=== PATIENT | male | born 1965 | race American Indian/Alaskan Native ===

== ENCOUNTER 2019-11-24 15:36 | Inpatient (IN) | payer OTHER ==
[~2019-11-24] VITALS: Ht 182.9 cm; Wt 91.0 kg
[2019-11-24] MEDS ORDERED: SODIUM CHLORIDE 0.9% 1,000 ML IVB ONE (16:13)
[2019-11-24] MEDS ORDERED: AZITHROMYCIN 500MG/ 250ML 250 ML IV ONE (16:15)
[2019-11-24] MEDS ORDERED: DOXYCYCLINE 100 MG TAB/CAP PO ONE (16:15)
[2019-11-24] MEDS ORDERED: ACETAMINOPHEN 325 MG TAB PO ONE ×2 (17:10→17:15)
[2019-11-24] MEDS ORDERED: ASCORBIC ACID 500 MG TAB PO ONE (17:45)
[2019-11-24] MEDS ORDERED: ZINC SULFATE 220mg CAP or TAB PO ONE (17:45)
[2019-11-24 18:06] LABS: Basophils # (auto) 0 10 ^3/uL (0-0.2); Basophils % (auto) 0.4 % (0.0-2.0); Eosinophils # (auto) 0 10 ^3/uL (0-0.8); Eosinophils % (auto) 0.2 % (0.0-7.0); Hematocrit 43.3 % (41.0-53.0); Hemoglobin 14.3 g/dL (13.5-17.5); Lymphocytes # (auto) 0.9 10 ^3/uL (0.4-5.4); Lymphocytes % (auto) 17.1 % (10.0-50.0); Mean Corpuscular Hemoglobin 30.2 pg (28.0-32.0); Mean Corpuscular Volume 91.4 fL (80.0-100.0); Monocytes # (auto) 0.8 10 ^3/uL (0-1.3); Monocytes % (auto) 15.5 % (0.0-12.0); Neutrophils # (auto) 3.4 10 ^3/uL (1.6-8.6); Neutrophils % (auto) 66.8 % (37.0-80.0); Platelet Count (auto) 135 10^3/uL (140-450); Red Blood Cells 4.74 10^6/uL (4.5-5.90); Red Cell Distribution Width 13.2 % (11.8-14.3)
[2019-11-24 18:23] LABS: INR 1.01 (0.9-1.15); Partial Thromboplastin Time 30.5 sec (23.64-32.05)
[2019-11-24 18:24] LABS: Albumin 2.6 g/dL (3.4-5.0); Calcium 7.6 mg/dL (8.5-10.1); Magnesium 2.3 mg/dL (1.6-2.6); Potassium 3.7 mmol/L (3.5-5.1)
[2019-11-24 18:30] LABS: BUN/Creatinine Ratio 25.3; Bilirubin, Total 0.6 mg/dL (0.2-1.0); Total Protein 6.9 g/dL (6.4-8.2)
[2019-11-24] MEDS ORDERED: ASCORBIC ACID 1,000 MG TAB PO ONE (18:30)
--- NOTE | 2019-11-24 20:00 | NUR ---
Respiratory note: AT BEDSIDE IN FULL PPE FOR OXYGEN ASSESSMENT. PT SITTING UP IN BED EATING, SPEAKING IN FULL SENTENCES, NO RESPIRATORY DISTRESS NOTED. PT ON 2L NC, SPO2 NOTED AT 94%. PT PRESENTING NO RESPIRATORY DISTRESS AT THIS TIME. WILL CONTINUE TO MONITOR.
[2019-11-24] MEDS ORDERED: MORPHINE SULF INJ 2 MG/ML SYRINGE 1ML IV PRN (23:00)
[2019-11-24] MEDS ORDERED: NITROGLYCERIN 0.4 MG SL TAB SL PRN (23:00)
[2019-11-25 05:00] VITALS: BP 114/71
--- NOTE | 2019-11-25 05:15 | NUR ---
Telemetry admit from ER PORFIRIOBEBEHIRAM DOHERTY admitted to Telemetry unit after SBAR received. Patient oriented to ROMELIA PENA RN primary RN, unit, room, bed, and unit policies regarding patient care and visiting hours. Patient now on continuous telemetry monitoring, tele box # 14 and telemetry reading on arrival to unit is sinus rhythm. Patient placed on bedside oxygen, weighed by bedscale and encouraged to call if they need something. All questions and concerns addressed, patient verbalized understanding.
--- NOTE | 2019-11-25 06:28 | NUR ---
Requested Covid swab from lab. Awaiting receipt from [employer].
[2019-11-25 06:31] VITALS: BP 114/71
--- NOTE | 2019-11-25 06:35 | NUR ---
Respiratory note: HR 85, RR 16, SPO2 94% ON 2 L NC, BS ARE CLEAR. O2 CHECK. NO SIGNS OR SYMPTOMS OF RESPIRATORY DISTRESS NOTED AT THIS TIME.
--- NOTE | 2019-11-25 07:00 | NUR ---
Opening Shift Note Assumed care of patient, awake and alert. No S/S of distress/SOB or pain. Instructed on POC and to call for assist PRN, will continue to monitor for changes Q1hr and PRN.
--- NOTE | 2019-11-25 07:11 | NUR ---
MRSA SWAB SENT TO LAB [facility]. COVID SWAB COLLECT AND WILL BE WALKED DOWN TO LAB.
--- NOTE | 2019-11-25 07:11 | NUR ---
TEMPERATURE Oral temperature is 100.0 blankets removed. Patient refused further cooling measures at this time.
[2019-11-25 09:28] VITALS: BP 107/74
--- NOTE | 2019-11-25 09:38 | NUR ---
COOLING MEASURES FOR PATIENTS TEMPERATURE.
[2019-11-25] MEDS: cefTRIAXone 1GM/50ML D5W 50 ML IV SCH (11:09)
[2019-11-25] MEDS: PANTOPRAZOLE 40 MG TAB PO SCH (11:10)
[2019-11-25] MEDS: ZINC SULFATE 220mg CAP or TAB PO SCH (11:10)
[2019-11-25] MEDS: AZITHROMYCIN 250 MG TAB PO SCH (11:11)
[2019-11-25] MEDS: ASCORBIC ACID 500 MG TAB PO SCH (11:11)
[2019-11-25] MEDS: ENOXAPARIN SOD 40 MG/0.4 ML SYRINGE SC SCH (11:13)
[2019-11-25] MEDS ORDERED: predniSONE 20 MG TAB PO ONE (11:45)
[2019-11-25 13:00] VITALS: BP 119/73
[2019-11-25 13:36] LABS: Urine Bacteria NONE SEEN /hpf (None Seen); Urine Blood Negative /uL (Negative); Urine Specific Gravity 1.031 (1.001-1.035); Urine WBC 1 /hpf (0 - 3)
[2019-11-25 17:00] VITALS: BP 108/73
--- NOTE | 2019-11-25 19:45 | NUR ---
OPENING SHIFT NOTE Assumed care of patient who is A&O x4. Currently on 2L NC with mild SOB reported. reports 5/10 headache, which he states is tolerable at the moment. PIV in left forearm is intact and patent. Flushed with 10ml NS. Patient educated on the use of the IS and self proning. Verbalizes understanding. Instructed on collecting sputum sample. Bed is in low locked position with side rails up. Patient is in high fowlers position at this time. Shackled to bed at bilateral ankles and left wrist. Guards present in Ante room x2. Patient instructed to call for assistance when needed. Will continue to monitor for changes PRN.
[2019-11-25 22:00] VITALS: BP 117/78
--- NOTE | 2019-11-25 23:24 | NUR ---
PRONING Per correctional counselor at bedside, it is against policy to restrain the patient to the bed in a prone position. Patient also may not be left unrestrained to self prone. Patient is currently high Fowlers with c/o mild SOB. On 2L NC with sPo2 of 93%. Moist cough noted. Breathing is none labored at this time. Will continue to monitor.
[2019-11-26 05:02] VITALS: BP 105/70
--- NOTE | 2019-11-26 07:03 | NUR ---
Respiratory note: HR 65, RR 18, SPO2 95% ON 2L NC, BS COARSE AND DIMINISHED.O2 CHECK. NO SIGNS OR SYMPTOMS OF RESPIRATORY DISTRESS NOTED AT THIS TIME.
--- NOTE | 2019-11-26 07:15 | NUR ---
OPENING NOTE Assumed care of patient at 0700. Currently on 2L NC with no signs of respiratory distress. Patient verbalized a mild general pain of a 3/10. Patient reports that the pain is tolerable at this time. Updated patient on POC. Bed locked in lowest position, HOB elevated at least 30 degrees, side rails up, and call light is within reach. Patient is shackled to bed at bilateral ankles and left wrist. Guards present in room x 2. Will continue to monitor.
[2019-11-26 08:51] VITALS: BP 104/72
[2019-11-26] MEDS ORDERED: DexAMETHasone 4 MG TAB PO SCH (10:00)
[2019-11-26] MEDS: cefTRIAXone 1GM/50ML D5W 50 ML IV SCH (10:01)
[2019-11-26] MEDS: ZINC SULFATE 220mg CAP or TAB PO SCH (10:03)
[2019-11-26] MEDS: AZITHROMYCIN 250 MG TAB PO SCH (10:03)
[2019-11-26] MEDS: ENOXAPARIN SOD 40 MG/0.4 ML SYRINGE SC SCH (10:03)
[2019-11-26] MEDS: PANTOPRAZOLE 40 MG TAB PO SCH (10:04)
[2019-11-26] MEDS: ASCORBIC ACID 500 MG TAB PO SCH (10:05)
[2019-11-26 13:15] VITALS: BP 116/63
[2019-11-26 16:51] VITALS: BP 159/91
--- NOTE | 2019-11-26 19:16 | NUR ---
Opening Shift Note Assumed care of patient, awake and alert. No S/S of distress/SOB or pain. Instructed on POC and to call for assist PRN, will continue to monitor for changes Q1hr and PRN. Side rails up x2. Bed locked in lowest position. Call light within reach.
[2019-11-26 21:59] VITALS: BP 116/78
[2019-11-27] VITALS (7 sets, daily range): BP systolic 109–182; BP diastolic 62–132
--- NOTE | 2019-11-27 07:30 | NUR ---
Opening Shift Note: Report received and assumed care of patient. Pt.awake,alert, oriented,No S/S of respiratory distress noted.no c/o pain. Bed in lowest locked position, side rails up x 2, call light within reach.left arm shackles in place and attached to bed rails,2 ocean lifeguard at bedside.instructed on POC and to call for assistance PRN. Will continue to monitor for changes Q 1 hour and PRN.
[2019-11-27] MEDS: cefTRIAXone 1GM/50ML D5W 50 ML IV SCH (11:10)
[2019-11-27] MEDS: PANTOPRAZOLE 40 MG TAB PO SCH (11:11)
[2019-11-27] MEDS: ZINC SULFATE 220mg CAP or TAB PO SCH (11:11)
[2019-11-27] MEDS: ACETAMINOPHEN 325 MG TAB PO PRN (11:11)
[2019-11-27] MEDS: AZITHROMYCIN 250 MG TAB PO SCH (11:12)
[2019-11-27] MEDS: ENOXAPARIN SOD 40 MG/0.4 ML SYRINGE SC SCH (11:12)
[2019-11-27] MEDS: ASCORBIC ACID 500 MG TAB PO SCH (11:13)
--- NOTE | 2019-11-27 11:30 | NUR ---
PATIENT ON ROOM AIR ,O2 SATURATION CHECKED BY SENIOR QUALITY CONTROL TECHNICIAN,O2 SATURATION REPORTED TO BE 88%
--- NOTE | 2019-11-27 18:16 | NUR ---
RESTING NO DISTRESS NO DISCOMFORT
[2019-11-28 05:22] VITALS: BP 105/69
--- NOTE | 2019-11-28 07:00 | NUR ---
Respiratory note: PT IS RESTING COMFORTABLY. NO RESPIRATORY DISTRESS NOTED. SPO2 93% ON RA, HR 78, RR 20, BS CLEAR BILATERALLY. PRN MEDNEB TX NOT INDICATED. PT INFORMED TO PUSH CALL BUTTON IF INCREASED WOB, SOB, OR WHEEZING OCCURS. GUARDS AT BED SIDE.
--- NOTE | 2019-11-28 07:30 | NUR ---
Opening Shift Note Assumed care of patient, awake and alert. No S/S of distress/SOB or pain on room air. Instructed on POC and to call for assist PRN, will continue to monitor for changes Q1hr and PRN. Bed in low and locked position, rails up x2, no-slip socks on. Guards at bedside.
[2019-11-28 08:00] VITALS: BP 104/75
[2019-11-28 08:47] VITALS: BP 104/75
[2019-11-28] MEDS: cefTRIAXone 1GM/50ML D5W 50 ML IV SCH (09:26)
[2019-11-28] MEDS: ZINC SULFATE 220mg CAP or TAB PO SCH (09:26)
[2019-11-28] MEDS: PANTOPRAZOLE 40 MG TAB PO SCH (09:26)
[2019-11-28] MEDS: ASCORBIC ACID 500 MG TAB PO SCH (09:27)
[2019-11-28] MEDS: AZITHROMYCIN 250 MG TAB PO SCH (09:27)
[2019-11-28] MEDS: ENOXAPARIN SOD 40 MG/0.4 ML SYRINGE SC SCH (09:28)
[2019-11-28 13:00] VITALS: BP 111/70
--- NOTE | 2019-11-28 13:59 | NUR ---
Est energy needs 2663-5543 kcal (20-23 kcal/kg BW 91.1kg) Est protein needs 73-91g (0.8-1g/kg BW 91.1kg) Will reassess prn. Addendum: 11/28/19 at [address] Amended: Links added.
--- NOTE | 2019-11-28 16:00 | NUR ---
PATIENT AMBULATED ASSESSED TO BE AT 93% ON ROOM AIR AFTER AMBULATING. PATIENT STATED HE FELT SHORT OF BREATH WHILE AMBULATING.
[2019-11-28 16:44] VITALS: BP 104/67
--- NOTE | 2019-11-28 18:56 | NUR ---
Respiratory note: ASSESSED PT FOR PRN MED NEB AT THIS TIME, PT DENIES SOB AT THIS TIME, NO RESP DISTRESS NOTED AT THIS TIME, PULSE OX 93%, HR 83, RR 18, BILATERAL BS CLEAR
[2019-11-28] MEDS: ACETAMINOPHEN 325 MG TAB PO PRN (21:52)
[2019-11-28 22:00] VITALS: BP 114/64
[2019-11-29 05:00] VITALS: BP 103/65
--- NOTE | 2019-11-29 07:12 | NUR ---
PRN [place] TX NOT INDICATED AT THIS TIME. PT DENIES SOB OR ANY OTHER RESPIRATORY DISTRESS. PT ON 2LK/MIN VIA NC. 97% O2 SATS, HR 76 BPM, RR 18 BPM, SKIN IS DRY AND WARM TO THE TOUCH. RESPIRATIONS ARE EVEN AND NON LABORED. PT INSTRUCTED TO CALL IF [place] TX IS INDICATED. PT VERBALIZED UNDERSTANDING. WILL CONTINUE TO MONITOR PT.
--- NOTE | 2019-11-29 07:30 | NUR ---
Opening Shift Note Assumed care of patient, awake and alert. Respirations are even and unlabored. No S/S of distress/SOB or pain. Guards at bedside. Bed is low, locked with 2x side rails up. Call light is within reach. Instructed on POC and to call for assist PRN, will continue to monitor for changes Q1hr and PRN.
[2019-11-29 09:08] VITALS: BP 100/67
[2019-11-29] MEDS: ASCORBIC ACID 500 MG TAB PO SCH (09:43)
[2019-11-29] MEDS: AZITHROMYCIN 250 MG TAB PO SCH (09:43)
[2019-11-29] MEDS: cefTRIAXone 1GM/50ML D5W 50 ML IV SCH (09:44)
[2019-11-29] MEDS: PANTOPRAZOLE 40 MG TAB PO SCH (09:44)
[2019-11-29] MEDS: ZINC SULFATE 220mg CAP or TAB PO SCH (09:44)
[2019-11-29] MEDS: ENOXAPARIN SOD 40 MG/0.4 ML SYRINGE SC SCH (09:44)
--- NOTE | 2019-11-29 11:40 | NUR ---
Respiratory culture Patient aware of need for collection of sputum for respiratory culture. Supplies at bedside, all questions answered. Will continue to monitor.
[2019-11-29 12:34] VITALS: BP 108/68
--- NOTE | 2019-11-29 15:30 | NUR ---
Sputum collected and sent to lab for respiratory culture. Will continue to monitor.
[2019-11-29 16:54] VITALS: BP 109/63
--- NOTE | 2019-11-29 19:50 | NUR ---
Respiratory note: PT ASSESSED FOR PRN MED NEB TX. HR 82, RR 18, SPO2 94% ON 2L NC. NO S/S OF ANY RESPIRATORY DISTRESS NOTED. ADVISED PT TO CALL IF TX IS NEEDED.
--- NOTE | 2019-11-29 20:30 | NUR ---
open note assumed care of pt. upon entering room pt awake and alert. pt on 2L nc no s/s distress noted or expressed. pt denies any pain at this time. pt updated on plan of care. pt bed locked, low and 2x rails up. call light in reach. this nurse to round q1hr and prn.
[2019-11-29 22:00] VITALS: BP_SYST 112; BP_SYST 165; BP_DIAS 70; BP_DIAS 94
[2019-11-29] MEDS: ACETAMINOPHEN 325 MG TAB PO PRN (22:29)
[2019-11-29 23:03] VITALS: BP 109/63
[2019-11-30 05:00] VITALS: BP 100/64
[2019-11-30 09:00] VITALS: BP 99/63
[2019-11-30] MEDS: cefTRIAXone 1GM/50ML D5W 50 ML IV SCH (09:27)
[2019-11-30] MEDS: ASCORBIC ACID 500 MG TAB PO SCH (09:27)
[2019-11-30] MEDS: ENOXAPARIN SOD 40 MG/0.4 ML SYRINGE SC SCH (09:28)
[2019-11-30] MEDS: PANTOPRAZOLE 40 MG TAB PO SCH (09:28)
[2019-11-30] MEDS: AZITHROMYCIN 250 MG TAB PO SCH (09:28)
[2019-11-30] MEDS: ZINC SULFATE 220mg CAP or TAB PO SCH (09:28)
[2019-11-30 13:00] VITALS: BP 106/59
[2019-11-30] MEDS: ACETAMINOPHEN 325 MG TAB PO PRN ×2 (15:41→22:37)
[2019-11-30] MEDS: ALBUTEROL SULF 2.5 MG/0.5ML(0.5%) NEB SOLN NEB PRN ×2 (15:58→19:00)
[2019-11-30 17:00] VITALS: BP 122/75
--- NOTE | 2019-11-30 19:02 | NUR ---
RT NOTE PT WAS SEEN BY RT FOR HHN TX. PT TOLERATES WELL VIA MASK. NO ADVERSE REACTION NOTED. CONT ORDERED Addendum: 11/30/19 at 1902 by Alena Norwood RT Amended: Links added.
--- NOTE | 2019-11-30 20:00 | NUR ---
Opening Shift Note Assumed care of patient, awake and alert. No S/S of distress/SOB or pain. Instructed on POC and to call for assist PRN, will continue to monitor for changes Q1hr and PRN. Guards at bedside. Bedside in low position and call light in reach.
[2019-11-30 22:00] VITALS: BP 111/80
[2019-12-01 05:00] VITALS: BP 106/71
--- NOTE | 2019-12-01 06:00 | NUR ---
Patient awake resp even and unlabored. Non productive cough; no acute resp distress noted. Patient's status endorsed to day RN.
--- NOTE | 2019-12-01 07:30 | NUR ---
Opening Shift Note Assumed care of patient, upon entering room found patient to be resting with eyes closed. Respirations are even and unlabored. No S/S of distress/SOB or pain. Guards at bedside. Bed is low, locked with 2x side rails up. Call light is within reach. Instructed on POC and to call for assist PRN, will continue to monitor for changes Q1hr and PRN.
[2019-12-01 09:00] VITALS: BP_SYST 104; BP_SYST 164; BP_DIAS 64; BP_DIAS 71
--- NOTE | 2019-12-01 09:10 | NUR ---
Respiratory note: PT ASSESSED FOR PRN MED NEB. 2 LPM SP02 96%. HR 86, RR18. BS ARE CLEAR. NO TX INDICATED AT THIS TIME.
[2019-12-01] MEDS: AZITHROMYCIN 250 MG TAB PO SCH (09:23)
[2019-12-01] MEDS: ZINC SULFATE 220mg CAP or TAB PO SCH (09:23)
[2019-12-01] MEDS: ASCORBIC ACID 500 MG TAB PO SCH (09:23)
[2019-12-01] MEDS: cefTRIAXone 1GM/50ML D5W 50 ML IV SCH (09:23)
[2019-12-01] MEDS: PANTOPRAZOLE 40 MG TAB PO SCH (09:23)
[2019-12-01] MEDS: ENOXAPARIN SOD 40 MG/0.4 ML SYRINGE SC SCH (09:24)
[2019-12-01] MEDS: ACETAMINOPHEN 325 MG TAB PO PRN ×2 (09:35→21:39)
[2019-12-01] MEDS: FLUCONAZOLE 200MG/100ML 100 ML IV SCH (12:03)
--- NOTE | 2019-12-01 12:48 | NUR ---
Nutrition Followup Notes Wt: 90.5 kg Pt was sleeping with guards by bedside. per records pt with improving bronchitis. pt with no distress noted per nursing currently on regular diet with adequate PO of > 75% x 4 per RN doc Est energy needs 6885-9015 kcal (20-23 kcal/kg BW 91.1kg) Est protein needs 73-91g (0.8-1g/kg BW 91.1kg) Will reassess prn. LABS: GLU 107 H, CA 7.6 L, ALB 2.6 L. GI: Pt had 1 BM today per pt and RN doc BS: 21 low risk, per RN doc. Please refer to wound assessment report for full details. PES: Overweight aeb pt with BMI of 27.2kg/m2 r/t caloric intake in excess of needs Comments Will continue to closely monitor pertinent labs, PO intake, and skin status prn. Will followup in 3-5 days 1) Continue to monitor po intake,labs, skin 2) Rfer pt to [facility] on Dc 3) Continue current plan of care
[2019-12-01 13:00] VITALS: BP 107/67
[2019-12-01 18:19] VITALS: BP 92/54
--- NOTE | 2019-12-01 19:00 | NUR ---
Opening Shift Note Assumed care of patient, awake and alert. Guards on bedside. No S/S of distress/SOB or pain. Instructed on POC and to call for assist PRN, will continue to monitor for changes Q1hr and PRN.
[2019-12-01] MEDS: ALBUTEROL SULF 2.5 MG/0.5ML(0.5%) NEB SOLN NEB PRN (21:10)
[2019-12-01 21:26] VITALS: BP 121/81
[2019-12-02 05:11] VITALS: BP 113/77
--- NOTE | 2019-12-02 07:00 | NUR ---
Respiratory note: PRN MED NEB TX NOT INDICATED AT THIS TIME. HR 76, RR 14, SPO2 93% ON 3 L NC, BS CLEAR AND DIMINISHED.NO SIGNS OR SYMPTOMS OF RESPIRATORY DISTRESS NOTED.PT INFORMED TO HIT CALL BUTTON IF FEELING SOB OR WHEEZING.GUARDS AT BEDSIDE.
--- NOTE | 2019-12-02 07:30 | NUR ---
Opening Shift Note Assumed care of patient, awake and alert. No S/S of distress/SOB or pain. Instructed on POC and to call for assist PRN, will continue to monitor for changes Q1hr and PRN. Fall precautions in place per safety protocol.
[2019-12-02 09:00] VITALS: BP 100/65
[2019-12-02] MEDS: cefTRIAXone 1GM/50ML D5W 50 ML IV SCH (10:22)
[2019-12-02] MEDS: PANTOPRAZOLE 40 MG TAB PO SCH (10:22)
[2019-12-02] MEDS: ASCORBIC ACID 500 MG TAB PO SCH (10:23)
[2019-12-02] MEDS: ACETAMINOPHEN 325 MG TAB PO PRN ×2 (10:23→22:54)
[2019-12-02] MEDS: AZITHROMYCIN 250 MG TAB PO SCH (10:23)
[2019-12-02] MEDS: ENOXAPARIN SOD 40 MG/0.4 ML SYRINGE SC SCH (10:23)
[2019-12-02] MEDS: ZINC SULFATE 220mg CAP or TAB PO SCH (10:23)
--- NOTE | 2019-12-02 10:44 | NUR ---
Patient requested Available tylenol for generalized pain rated at 6/10. Administered tylenol, will cont to monitor patient.
[2019-12-02] MEDS: FLUCONAZOLE 200MG/100ML 100 ML IV SCH (12:26)
[2019-12-02 13:00] VITALS: BP 107/72
[2019-12-02 17:00] VITALS: BP 100/65
--- NOTE | 2019-12-02 19:00 | NUR ---
Opening Shift Note Assumed care of patient, awake and alert.Guards on the bedside. No S/S of distress/SOB or pain. Instructed on POC and to call for assist PRN, will continue to monitor for changes Q1hr and PRN.
[2019-12-02 20:00] VITALS: BP 100/65
[2019-12-02 22:00] VITALS: BP 104/63
[2019-12-03] MEDS: ALBUTEROL SULF 2.5 MG/0.5ML(0.5%) NEB SOLN NEB PRN ×2 (00:18→19:04)
[2019-12-03 05:53] VITALS: BP 100/66
--- NOTE | 2019-12-03 06:36 | NUR ---
Respiratory note: HR 77, RR 16, SPO2 93% ON 4 L NC, BS CLEAR AND DIMINISHED.PT IS SLEEPING COMFORTABLY WITH NO SIGNS OF RESPIRATORY DISTRESS NOTED. PT STATES BREATHING IS GOOD.
--- NOTE | 2019-12-03 08:00 | NUR ---
Received patient alert and oriented x4, not in distress, diminished lung sounds in bilateral lung lobes, RR= 18 Sat=95% Heart R=88, deep breathing and coughing encouraged, verbalized understanding, abdomen soft and active in 4 quadrants, last BM=on 11/30/19 as reported, tolerated provided break fast tray well, general skin intact warm to touch, resting on bed, head of bed elevated, bed on low position, rails up x2, call light on reach, guards at bed side, will continue monitoring.
[2019-12-03 09:00] VITALS: BP 100/57
[2019-12-03] MEDS: cefTRIAXone 1GM/50ML D5W 50 ML IV SCH (10:23)
[2019-12-03] MEDS: PANTOPRAZOLE 40 MG TAB PO SCH (10:25)
[2019-12-03] MEDS: ZINC SULFATE 220mg CAP or TAB PO SCH (10:25)
[2019-12-03] MEDS: AZITHROMYCIN 250 MG TAB PO SCH (10:27)
[2019-12-03] MEDS: ASCORBIC ACID 500 MG TAB PO SCH (10:27)
[2019-12-03] MEDS: ENOXAPARIN SOD 40 MG/0.4 ML SYRINGE SC SCH (10:28)
[2019-12-03] MEDS: FLUCONAZOLE 200MG/100ML 100 ML IV SCH (11:38)
--- NOTE | 2019-12-03 12:00 | NUR ---
NOT IN DISTRESS, DENIED PAIN, RESTING ON BED, WILL CONTINUE MONITORING.
[2019-12-03 12:29] VITALS: BP 100/65
[2019-12-03] MEDS: ACETAMINOPHEN 325 MG TAB PO PRN ×2 (15:43→22:43)
[2019-12-03 16:48] VITALS: BP 104/68
--- NOTE | 2019-12-03 17:00 | NUR ---
AT 1540 C/O HEAD ACH PAIN L=4/10, REGULAR TYLENOL WAS GIVEN ORDERED, AT 1625 PAIN L=2/10, RESTING ON BED,NOT IN DISTRESS, DENIED SOB AND CHEST PAIN, RR=20 MTJ=795 WITH O2 2L NC, WILL CONTINUE MONITORING.
--- NOTE | 2019-12-03 19:22 | NUR ---
NOT IN DISTRESS, RESTING ON BED, REPORT WAS GIVEN TO THE CLAMPER RN.
[2019-12-03 23:31] VITALS: BP 101/62
[2019-12-04 05:58] VITALS: BP 99/67
--- NOTE | 2019-12-04 07:15 | NUR ---
Received patient alert and oriented x4, not in distress, wheezing lung sounds in bilateral upper and diminished in lower lung lobes, RR= 18 Sat=93% with O2 3L NC Heart R=68, deep breathing and coughing encouraged, demonstrated and verbalized understanding, abdomen soft and active in 4 quadrants, last BM=on 12/02/19 as reported, general skin intact warm to touch, resting on bed, head of bed elevated, bed on low position, rails up x2, call light on reach, will continue monitoring.
--- NOTE | 2019-12-04 07:56 | NUR ---
RT NOTE: NO TX INDICATED AT THIS TIME. NO SIGNS OF RESPIRATORY DISTRESS NOTED. ON 2L NC SPO2 97 HR 69 RR 16. LUNG SOUNDS CLEAR T/O. PT AWARE TO PAGE IF NEED FOR TX ARISES. WILL CONTINUE TO MONITOR.
[2019-12-04 09:00] VITALS: BP 97/60
[2019-12-04] MEDS: cefTRIAXone 1GM/50ML D5W 50 ML IV SCH (10:50)
[2019-12-04] MEDS: ZINC SULFATE 220mg CAP or TAB PO SCH (10:51)
[2019-12-04] MEDS: PANTOPRAZOLE 40 MG TAB PO SCH (10:51)
[2019-12-04] MEDS: AZITHROMYCIN 250 MG TAB PO SCH (10:52)
[2019-12-04] MEDS: ASCORBIC ACID 500 MG TAB PO SCH (10:52)
[2019-12-04] MEDS: ENOXAPARIN SOD 40 MG/0.4 ML SYRINGE SC SCH (10:52)
[2019-12-04] MEDS: FLUCONAZOLE 200MG/100ML 100 ML IV SCH (13:04)
--- NOTE | 2019-12-04 14:51 | NUR ---
Nutrition Followup Notes Wt: 91.1 kg Pt was sleeping with guards by bedside. per records pt with improving bronchitis. pt with no distress noted per nursing currently on regular diet with adequate PO of > 75% x 4 per RN doc Est energy needs 1150-6466 kcal (20-23 kcal/kg BW 91.1kg) Est protein needs 73-91g (0.8-1g/kg BW 91.1kg) Will reassess prn. LABS: No new labs today 11/23: GLU 107 H, CA 7.6 L, ALB 2.6 L. GI: Pt had 1 BM today per pt and RN doc BS: 21 low risk, per RN doc. Please refer to wound assessment report for full details. PES: Overweight aeb pt with BMI of 27.2kg/m2 r/t caloric intake in excess of needs Comments Will continue to closely monitor pertinent labs, PO intake, and skin status prn. Will followup in 3-5 days 1) Continue to monitor po intake,labs, skin 2) Rfer pt to [facility] on Dc 3) Continue current plan of care
[2019-12-04 16:46] VITALS: BP 108/74
[2019-12-04] MEDS: ACETAMINOPHEN 325 MG TAB PO PRN (18:43)
[2019-12-04] MEDS: ALBUTEROL SULF 2.5 MG/0.5ML(0.5%) NEB SOLN NEB PRN (19:07)
--- NOTE | 2019-12-04 19:28 | NUR ---
NOT IN DISTRESS, RESTING ON BED, REPORT WAS GIVEN TO THE KEY SANDER RN.
--- NOTE | 2019-12-04 19:35 | NUR ---
Opening Shift Note Assumed care of patient, awake and alert. No S/S of distress/SOB or pain. Pt had been ambulating, stated feeling short of breath, O2 sat measured at 93%, O2 delivery increased to 3L NC. Pt educated to notify RN if ambulating on the unit so that supplementary O2 can be applied. Pt using IS, has increased to 1000. Pt safety measures in place, bed in lowest position, side rails raised x2, call light within reach. Instructed on POC and to call for assist PRN, will continue to monitor for changes Q1hr and PRN.
[2019-12-04 22:00] VITALS: BP 100/63
[2019-12-05 05:00] VITALS: BP_SYST 121; BP_SYST 98; BP_DIAS 64; BP_DIAS 88
--- NOTE | 2019-12-05 06:52 | NUR ---
Respiratory note: PT IS AWAKE, AND ALERT. NO RESPIRATORY DISTRESS NOTED. SPO2 92% ON 3L NC, HR 71, RR 17, BS ARE CLEAR/DIMINISHED BILATERALLY. PRN MEDNEB TX NOT INDICATED AT THIS TIME. PT INFORMED TO PUSH CALL BUTTON IF INCREASED WOB, SOB, OR WHEEZING OCCURS. PT CUFFED TO BED RAIL. GUARDS AT BEDSIDE. WILL CONTINUE TO MONITOR PT.
[2019-12-05 09:00] VITALS: BP 95/67
[2019-12-05] MEDS: cefTRIAXone 1GM/50ML D5W 50 ML IV SCH (10:31)
[2019-12-05] MEDS: AZITHROMYCIN 250 MG TAB PO SCH (10:31)
[2019-12-05] MEDS: ENOXAPARIN SOD 40 MG/0.4 ML SYRINGE SC SCH (10:32)
[2019-12-05] MEDS: ZINC SULFATE 220mg CAP or TAB PO SCH (10:32)
[2019-12-05] MEDS: ASCORBIC ACID 500 MG TAB PO SCH (10:32)
[2019-12-05] MEDS: PANTOPRAZOLE 40 MG TAB PO SCH (10:32)
[2019-12-05 12:56] VITALS: BP 99/62
[2019-12-05] MEDS: FLUCONAZOLE 200MG/100ML 100 ML IV SCH (13:00)
[2019-12-05 17:02] VITALS: BP 99/63
[2019-12-05] MEDS: ALBUTEROL SULF 2.5 MG/0.5ML(0.5%) NEB SOLN NEB PRN (19:17)
[2019-12-05 21:22] VITALS: BP 99/63
[2019-12-05 22:00] VITALS: BP 98/63
[2019-12-06 05:00] VITALS: BP_SYST 103; BP_SYST 85; BP_DIAS 60; BP_DIAS 68
--- NOTE | 2019-12-06 07:18 | NUR ---
Given report to Venu Newman, patient is resting no distress.
[2019-12-06 08:47] VITALS: BP 97/65
[2019-12-06] MEDS: cefTRIAXone 1GM/50ML D5W 50 ML IV SCH (10:13)
[2019-12-06] MEDS: PANTOPRAZOLE 40 MG TAB PO SCH (10:14)
[2019-12-06] MEDS: AZITHROMYCIN 250 MG TAB PO SCH (10:14)
[2019-12-06] MEDS: ZINC SULFATE 220mg CAP or TAB PO SCH (10:14)
[2019-12-06] MEDS: ASCORBIC ACID 500 MG TAB PO SCH (10:14)
[2019-12-06] MEDS: ENOXAPARIN SOD 40 MG/0.4 ML SYRINGE SC SCH (10:14)
[2019-12-06] MEDS: FLUCONAZOLE 200MG/100ML 100 ML IV SCH (12:31)
[2019-12-06 13:00] VITALS: BP 107/62
[2019-12-06 17:00] VITALS: BP 102/63
[2019-12-06] MEDS: ALBUTEROL SULF 2.5 MG/0.5ML(0.5%) NEB SOLN NEB PRN (19:36)
[2019-12-07 05:46] VITALS: BP 95/60
[2019-12-07 09:00] VITALS: BP 103/69
[2019-12-07] MEDS: cefTRIAXone 1GM/50ML D5W 50 ML IV SCH (10:15)
[2019-12-07] MEDS: PANTOPRAZOLE 40 MG TAB PO SCH (10:15)
[2019-12-07] MEDS: ZINC SULFATE 220mg CAP or TAB PO SCH (10:15)
[2019-12-07] MEDS: ASCORBIC ACID 500 MG TAB PO SCH (10:16)
[2019-12-07] MEDS: AZITHROMYCIN 250 MG TAB PO SCH (10:16)
[2019-12-07] MEDS: ENOXAPARIN SOD 40 MG/0.4 ML SYRINGE SC SCH (10:16)
--- NOTE | 2019-12-07 10:32 | NUR ---
TITRATED PATIENTS OXYGEN DOWN TO 2L VIA NC, HE WAS ON 3L VIA NC WITH O2 SAT AT 99%. WILL CONTINUE TO MONITOR FOR ANY RESPIRATORY CHANGES. PATIENT TOLERATING WELL AT THIS TIME
[2019-12-07] MEDS: FLUCONAZOLE 200MG/100ML 100 ML IV SCH (12:30)
[2019-12-07 13:00] VITALS: BP 92/54
[2019-12-07] MEDS: ALBUTEROL SULF 2.5 MG/0.5ML(0.5%) NEB SOLN NEB PRN ×2 (13:10→18:28)
[2019-12-07 17:00] VITALS: BP 104/62
--- NOTE | 2019-12-07 18:21 | NUR ---
IV INSERTION OF RIGHT WRIST 22 GAUGE. REMOVED RIGHT FOREARM 20 GAUGE. PATIENT TOLERATED WELL
--- NOTE | 2019-12-07 20:09 | NUR ---
PT OOB IN SHOWER. BED LINEN CHANGED.
--- NOTE | 2019-12-07 20:30 | NUR ---
PT BACK IN BED;RESTING WITH NO DISTRESS;CALL LIGHT IN REACH WITH TWO SIDE RAILS UP.
[2019-12-07 23:07] VITALS: BP 100/62
[2019-12-08 05:13] VITALS: BP 106/66
[2019-12-08] MEDS: ALBUTEROL SULF 2.5 MG/0.5ML(0.5%) NEB SOLN NEB PRN ×2 (06:40→18:53)
[2019-12-08 08:43] VITALS: BP 105/61
[2019-12-08] MEDS: ZINC SULFATE 220mg CAP or TAB PO SCH (08:45)
[2019-12-08] MEDS: ASCORBIC ACID 500 MG TAB PO SCH (08:47)
[2019-12-08] MEDS: AZITHROMYCIN 250 MG TAB PO SCH (08:47)
[2019-12-08] MEDS: PANTOPRAZOLE 40 MG TAB PO SCH (08:47)
[2019-12-08] MEDS: cefTRIAXone 1GM/50ML D5W 50 ML IV SCH (08:48)
[2019-12-08] MEDS: ENOXAPARIN SOD 40 MG/0.4 ML SYRINGE SC SCH (08:48)
[2019-12-08] MEDS ORDERED: VANCOMYCIN PER PHARMACY 0 MG IV SCH (09:15)
[2019-12-08] MEDS ORDERED: VANCOMYCIN 1GM/250ML 250 ML IV SCH (10:00)
[2019-12-08 10:27] LABS: Albumin 2.7 g/dL (3.4-5.0); Calcium 9.1 mg/dL (8.5-10.1); Potassium 3.6 mmol/L (3.5-5.1)
[2019-12-08 10:30] LABS: Bilirubin, Total 0.3 mg/dL (0.2-1.0); Total Protein 8.4 g/dL (6.4-8.2)
[2019-12-08] MEDS: POTASSIUM CHL 10 Meq TABLET PO SCH ×2 (10:44→20:53)
[2019-12-08] MEDS ORDERED: VANCOMYCIN 1,250 MG in D5W 5% 250 ML IV SCH (11:00)
[2019-12-08 12:36] VITALS: BP 110/69
[2019-12-08] MEDS: FLUCONAZOLE 200MG/100ML 100 ML IV SCH (13:02)
--- NOTE | 2019-12-08 16:17 | NUR ---
Nutrition Followup Notes Wt: 89.9 kg Pt was sleeping with guards by bedside. Pt with no distress noted per nursing, currently on regular diet with adequate PO of ave 90% x 5 meals per RN doc. Will continue to monitor PO status, skin status, pertinent labs and weight trends. Will f/u in 3-5 days. Est energy needs 6682-4401 kcal (20-23 kcal/kg BW 91.1kg) Est protein needs 73-91g (0.8-1g/kg BW 91.1kg) Will reassess prn. LABS: New labs pending today GI: Pt had 1 BM on 12/06 per pt and RN doc BS: 22 low risk, per RN doc. Please refer to wound assessment report for full details. PES: Overweight aeb pt with BMI of 27.2kg/m2 r/t caloric intake in excess of needs Comments Will continue to closely monitor pertinent labs, PO intake, and skin status prn. Will followup in 3-5 days 1) Continue to monitor po intake,labs, skin 2) Refer pt to [facility] on Dc 3) Continue current plan of care
[2019-12-08 16:56] VITALS: BP 99/63
[2019-12-08 17:17] VITALS: BP 99/63
[2019-12-08] MEDS: ACETAMINOPHEN 325 MG TAB PO PRN (17:47)
[2019-12-08] MEDS: FUROSEMIDE 20 MG TAB PO SCH (17:47)
--- NOTE | 2019-12-08 19:30 | NUR ---
Opening Shift Note Assumed care of patient, awake and alert. A&O x4. Patient laying in bed. No S/S of distress/SOB or pain. Safety measures maintained by keeping the bed locked in lowest position, 2 side rails up, personal items and call light within reach. Instructed on POC and to call for assist PRN, will continue to monitor for changes Q1hr and PRN.
[2019-12-08] MEDS: VANCOMYCIN 1GM/250ML 250 ML IV SCH (20:53)
[2019-12-08 22:00] VITALS: BP 103/65
[2019-12-09 05:40] VITALS: BP 102/68
[2019-12-09] MEDS: FUROSEMIDE 20 MG TAB PO SCH ×2 (06:43→17:36)
[2019-12-09] MEDS: VANCOMYCIN 1GM/250ML 250 ML IV SCH ×2 (06:44→17:32)
[2019-12-09 06:49] LABS: Albumin 2.7 g/dL (3.4-5.0); BUN/Creatinine Ratio 18.3; Bilirubin, Total 0.5 mg/dL (0.2-1.0); Calcium 8.8 mg/dL (8.5-10.1); Total Protein 8.4 g/dL (6.4-8.2)
--- NOTE | 2019-12-09 07:45 | NUR ---
Opening Shift Note Assumed care of patient, awake and alert. No S/S of distress.Reports SOB with activity, O2 at 3l, denies pain. Instructed on POC and to call for assist PRN, will continue to monitor for changes Q1hr and PRN.
[2019-12-09 08:17] VITALS: BP 107/72
--- NOTE | 2019-12-09 08:53 | NUR ---
Respiratory note: PT IS AWAKE, AND ALERT. NO RESPIRATORY DISTRESS NOTED. SPO2 93% ON 3L NC, HR 96, RR 16, BS ARE CLEAR/DIMINISHED BILATERALLY. PRN MED NEB TX NOT INDICATED AT THIS TIME. PT INFORMED TO PUSH CALL BUTTON IF INCREASED WOB, SOB, OR WHEEZING OCCURS. PT CUFFED TO BED RAIL. GUARDS AT BEDSIDE. WILL CONTINUE TO MONITOR PT.
[2019-12-09] MEDS: POTASSIUM CHL 10 Meq TABLET PO SCH ×2 (10:40→21:38)
[2019-12-09] MEDS: ZINC SULFATE 220mg CAP or TAB PO SCH (10:40)
[2019-12-09] MEDS: ASCORBIC ACID 500 MG TAB PO SCH (10:41)
[2019-12-09] MEDS: PANTOPRAZOLE 40 MG TAB PO SCH (10:41)
[2019-12-09] MEDS: ENOXAPARIN SOD 40 MG/0.4 ML SYRINGE SC SCH (10:42)
[2019-12-09 12:52] VITALS: BP 100/68
[2019-12-09] MEDS: FLUCONAZOLE 200MG/100ML 100 ML IV SCH (13:47)
[2019-12-09 16:32] VITALS: BP 97/61
--- NOTE | 2019-12-09 19:30 | NUR ---
Opening Shift Note Assumed care of patient, awake and alert. A&Ox4. Patient sitting up in bed. No S/S of distress/SOB or pain. Safety measures maintained by keeping the bed locked in lowest position, 2 side rails up, personal items and call light within reach. Instructed on POC and to call for assist PRN, will continue to monitor for changes Q1hr and PRN.
--- NOTE | 2019-12-09 19:35 | NUR ---
Respiratory note: ASSESSED PT FOR PRN MED NEB AT THIS TIME, PT DENIES SOB AT THIS TIME, NO RESP DISTRESS NOTED, NO TX INDICATED, PULSE OX 93% ON 3L NC, HR 91, RR 18, BILATERAL BS CLEAR.
[2019-12-09] MEDS: methylPREDNISolone SOD SUCC 125 MG/2 ML VL IV SCH (21:38)
[2019-12-09 22:00] VITALS: BP 105/66
[2019-12-10] MEDS: VANCOMYCIN 1GM/250ML 250 ML IV SCH ×3 (02:47→22:49)
[2019-12-10 05:00] VITALS: BP 114/69
[2019-12-10] MEDS: ACETAMINOPHEN 325 MG TAB PO PRN (05:14)
[2019-12-10] MEDS: FUROSEMIDE 20 MG TAB PO SCH ×2 (05:39→17:36)
--- NOTE | 2019-12-10 07:43 | NUR ---
Opening Note Assumed pt care from NOC RN. Pt is a/ox4 with no s/s of distress or SOB. Pt is currently sitting upright in bed with no complaints at this time. Pt is currently on 3L via NC. Discussed POC with pt; pt verbalized understanding. Safety measures maintained with call light within reach, bed in lowest position and side rails up. Will continue to monitor for changes.
[2019-12-10] MEDS: methylPREDNISolone SOD SUCC 125 MG/2 ML VL IV SCH ×2 (08:48→22:00)
[2019-12-10] MEDS: ENOXAPARIN SOD 40 MG/0.4 ML SYRINGE SC SCH (08:48)
[2019-12-10] MEDS: ASCORBIC ACID 500 MG TAB PO SCH (08:49)
[2019-12-10] MEDS: POTASSIUM CHL 10 Meq TABLET PO SCH ×2 (08:49→22:00)
[2019-12-10] MEDS: PANTOPRAZOLE 40 MG TAB PO SCH (08:49)
[2019-12-10] MEDS: ZINC SULFATE 220mg CAP or TAB PO SCH (08:49)
[2019-12-10 09:01] VITALS: BP 107/66
[2019-12-10] MEDS: FLUCONAZOLE 200MG/100ML 100 ML IV SCH (12:17)
[2019-12-10 12:30] VITALS: BP 110/74
[2019-12-10 17:10] VITALS: BP 109/69
--- NOTE | 2019-12-10 19:47 | NUR ---
Patient Showered Patient showered independently. No s/s of pain or distress. Full bed linen changed. Patient educated to pull on the call light/red string if in need of assistance. Patient verbalized understanding.
--- NOTE | 2019-12-10 20:15 | NUR ---
Patient out of Shower Patient tolerated shower well. Patient back on 3L NC. No s/s of distress or pain.
[2019-12-10 22:00] VITALS: BP 109/63
[2019-12-11] VITALS (7 sets, daily range): BP systolic 103–112; BP diastolic 61–73
[2019-12-11] MEDS: ACETAMINOPHEN 325 MG TAB PO PRN ×2 (00:39→16:06)
[2019-12-11] MEDS: FUROSEMIDE 20 MG TAB PO SCH ×2 (05:30→18:37)
--- NOTE | 2019-12-11 09:07 | NUR ---
RT NOTE: PRN BREATHING TX. NOT INDICATED AT THIS TIME. NO S/S OF RESPIRATORY DISTRESS NOTED. PT. HR 88, RR 18, POX 93% 2L N/C. PT. AWARE TO NOTIFY RN IF BREATHING TX. IS NEEDED.
[2019-12-11] MEDS: VANCOMYCIN 1GM/250ML 250 ML IV SCH ×2 (09:38→18:37)
[2019-12-11] MEDS: ASCORBIC ACID 500 MG TAB PO SCH (09:43)
[2019-12-11] MEDS: methylPREDNISolone SOD SUCC 125 MG/2 ML VL IV SCH ×2 (09:43→22:17)
[2019-12-11] MEDS: ENOXAPARIN SOD 40 MG/0.4 ML SYRINGE SC SCH (09:44)
[2019-12-11] MEDS: PANTOPRAZOLE 40 MG TAB PO SCH (09:44)
[2019-12-11] MEDS: POTASSIUM CHL 10 Meq TABLET PO SCH ×2 (09:44→22:17)
[2019-12-11] MEDS: ZINC SULFATE 220mg CAP or TAB PO SCH (09:44)
[2019-12-11] MEDS: FLUCONAZOLE 200MG/100ML 100 ML IV SCH (13:34)
--- NOTE | 2019-12-11 15:02 | NUR ---
Nutrition Followup Notes Wt: 89.3 kg Pt was sleeping with guards by bedside. Pt with no distress noted per nursing, currently on regular diet with adequate PO of > 75% x 5 meals per RN doc. Est energy needs 2013-0350 kcal (20-23 kcal/kg BW 91.1kg) Est protein needs 73-91g (0.8-1g/kg BW 91.1kg) Will reassess prn. LABS: BUN 20 H, ALB 2.7 GI: Pt had 1 BM on today per pt and RN doc BS: 21 low risk, per RN doc. Please refer to wound assessment report for full details. PES: Overweight aeb pt with BMI of 27.2kg/m2 r/t caloric intake in excess of needs Comments Will continue to closely monitor pertinent labs, PO intake, and skin status prn. Will followup in 3-5 days 1) Continue to monitor po intake,labs, skin 2) Refer pt to [facility] on Dc 3) Continue current plan of care
--- NOTE | 2019-12-11 19:25 | NUR ---
OPENING SHIFT NOTE Assumed care of patient who is A&O x4. Currently on 2L NC with no s/s of distress. Denies pain at this time. PIV in right forearm is intact and patent. Flushed with 10ml NS. Patient is restrained to the bed at bilateral ankles and left wrist. Armed loan servicing officer at the bedside for supervision. POC discussed and patient verbalizes understanding. Will continue to monitor for changes PRN.
[2019-12-11] MEDS: ALBUTEROL SULF 2.5 MG/0.5ML(0.5%) NEB SOLN NEB PRN (19:52)
[2019-12-12 00:27] VITALS: BP 105/73
[2019-12-12 05:41] VITALS: BP 105/64
[2019-12-12] MEDS: FUROSEMIDE 20 MG TAB PO SCH (06:30)
[2019-12-12 07:11] LABS: Basophils # (auto) 0.1 10 ^3/uL (0-0.2); Basophils % (auto) 0.6 % (0.0-2.0); Eosinophils # (auto) 0 10 ^3/uL (0-0.8); Hematocrit 38.6 % (41.0-53.0); Hemoglobin 12.8 g/dL (13.5-17.5); Lymphocytes % (auto) 7.3 % (10.0-50.0); Mean Corpuscular Hemoglobin 29.9 pg (28.0-32.0); Mean Corpuscular Hgb Conc. 33.1 g/dL (32.0-36.0); Mean Corpuscular Volume 90.2 fL (80.0-100.0); Monocytes # (auto) 0.4 10 ^3/uL (0-1.3); Monocytes % (auto) 3.1 % (0.0-12.0); Neutrophils # (auto) 12.6 10 ^3/uL (1.6-8.6); Platelet Count (auto) 383 10^3/uL (140-450); Red Blood Cells 4.28 10^6/uL (4.5-5.90); Red Cell Distribution Width 13.1 % (11.8-14.3); White Blood Cell 14.2 10^3/uL (4.4-10.8)
--- NOTE | 2019-12-12 07:23 | NUR ---
Opening Shift Note Assumed care of patient, awake and alert x4. Patient denies pain or shortness of breath at this time. Instructed on plan of care and encouraged patient to call for assistance as needed, patient verbalized understanding. Bed is locked in lowest position, side rails x 2 are up, and call light is within reach.
[2019-12-12 07:29] LABS: Calcium 8.1 mg/dL (8.5-10.1); Potassium 3.8 mmol/L (3.5-5.1)
[2019-12-12 07:32] LABS: BUN/Creatinine Ratio 22.6
--- NOTE | 2019-12-12 07:32 | NUR ---
Respiratory note: PT SEEN FOR PRN. PT FOUND ON 2LPM NASAL CANNULA. HR 86, RR 20 SP02 91%.PT B/S ARE CLEAR/DIMINISHED. NO TREATMENT INDICATED AT THIS TIME. PT AWARE TO HAVE RT PAGED IF BECOMES SOB.
[2019-12-12] MEDS ORDERED: VANCOMYCIN 1GM/250ML 250 ML IV SCH ×3 (08:00→14:00)
[2019-12-12] MEDS ORDERED: VANCOMYCIN 1GM/250ML 250 ML IV ONE (08:15)
[2019-12-12] MEDS: ENOXAPARIN SOD 40 MG/0.4 ML SYRINGE SC SCH (08:29)
[2019-12-12] MEDS: PANTOPRAZOLE 40 MG TAB PO SCH (08:29)
[2019-12-12] MEDS: ASCORBIC ACID 500 MG TAB PO SCH (08:29)
[2019-12-12] MEDS: ZINC SULFATE 220mg CAP or TAB PO SCH (08:29)
[2019-12-12] MEDS: methylPREDNISolone SOD SUCC 125 MG/2 ML VL IV SCH (08:29)
[2019-12-12] MEDS: POTASSIUM CHL 10 Meq TABLET PO SCH (08:29)
[2019-12-12] MEDS: FLUCONAZOLE 200MG/100ML 100 ML IV SCH (11:49)
[2019-12-12 13:00] VITALS: BP 102/59
[2019-12-12] MEDS ORDERED: LEVO500T21 PO (15:10)
== END 2019-12-12 15:47 | DRG 177 ==
LOC: EDBD 15:36 → ER 15:36 → EEVIPCON 15:36 → TELE 15:37 → TELE-EAST 11-25 05:05 → EAST 11-26 10:57 → WEST WING 11-26 13:37
PROVIDERS: ADMIT Internal Medicine; ATTEND Internal Medicine
DX: U07.1 COVID-19 (principal); J96.01 Acute respiratory failure with hypoxia; J12.89 Other viral pneumonia; J98.11 Atelectasis; J20.8 Acute bronchitis due to other specified organisms; Z82.49 Family history of ischemic heart disease and other diseases of the circulatory system; Z87.891 Personal history of nicotine dependence
CPT/HCPCS: 36415; 71045; 71046; 80048; 80053; 80202; 81001; 82728; 83605; 83735; 84484; 85025; 85610; 85730; 86141; 87040; 87070; 87077; 87081; 87205; 93005; 94640; 96365; G0378; J0696; J1450; J7060